=== PATIENT | female | born 1995 | race African-American/Black ===

== ENCOUNTER 2017-05-19 07:59 | Emergency (ER) | payer SELFPAY ==
[~2017-05-19] VITALS: Ht 170.2 cm; Wt 80.0 kg
[2017-05-19] MEDS ORDERED: ONDANSETRON HCL 4MG/2ML VIAL IV STA (08:20)
[2017-05-19] MEDS ORDERED: KETOROLAC 30MG/ML VIAL IV STA (08:20)
[2017-05-19] MEDS ORDERED: SODIUM CHLORIDE 0.9% 1,000 ML IV ONE (08:20)
[2017-05-19 09:04] LABS: CARBON DIOXIDE 25 mEq/L (21-32); CHLORIDE 105 mEq/L (98-107)
[2017-05-19 09:06] LABS: HEMATOCRIT. 35.9 % (36.0-48.0); HEMOGLOBIN. 11.8 g/dL (12.0-16.0); MEAN CORPUSCULAR HEMOGLOBIN 27.1 pg (28.0-32.0); MEAN CORPUSCULAR VOLUME 82.3 fL (81.0-99.0); MEAN PLATELET VOLUME 9.7 fl (7.4-10.4); PLATELET 203 x1000/uL (130-400); RED BLOOD CELL COUNT 4.36 mill/uL (4.2-5.4); RED CELL DISTRIBUTION WIDTH 15.3 % (11.6-14.6)
[2017-05-19 09:17] LABS: CLARITY URINE CLOUDY (CLEAR); COLOR URINE YELLOW (YELLOW); KETONES URINE 1+ (NEGATIVE); LEUKOCYTE ESTERASE URINE NEGATIVE (NEGATIVE); NITRITE URINE NEGATIVE (NEGATIVE); OCCULT BLOOD URINE 3+ (NEGATIVE); PROTEIN URINE TRACE (NEGATIVE); SPECIFIC GRAVITY URINE 1.022 (1.005-1.030)
[2017-05-19 09:45] LABS: *BARBITURATES SCREEN URINE NEGATIVE (NEGATIVE); *BENZODIAZEPINES SCREEN URINE NEGATIVE (NEGATIVE); *COCAINE SCREEN URINE NEGATIVE (NEGATIVE); METHADONE URINE SCREEN NEGATIVE (NEGATIVE); OPIATES URINE SCREEN NEGATIVE (NEGATIVE); PHENCYCLIDINE URINE SCREEN NEGATIVE (NEGATIVE)
[2017-05-19 10:09] LABS: *AMPHETAMINES SCREEN URINE PRESUMTIVE POSITIVE (NEGATIVE); CANNABINOID URINE SCREEN PRESUMTIVE POSITIVE (NEGATIVE)
[2017-05-19 11:01] LABS: PLATELET ESTIMATE NORMAL
[2017-05-19 11:54] VITALS: BP 121/68
== END 2017-05-19 12:06 | disposition home or self-care (01) ==
LOC: ER 08:16
DX: F15.10 Other stimulant abuse, uncomplicated (principal); R19.7 Diarrhea, unspecified; R11.2 Nausea with vomiting, unspecified; R53.1 Weakness; F12.10 Cannabis abuse, uncomplicated
CPT/HCPCS: 36415; 80053; 80305; 81001; 81025; 85025; 93005; 96361; 96374; 96375; 99285; J1885; J2405; J7030; J7040; Z7610